=== PATIENT | male | born 1985 | race Caucasian/White ===

== ENCOUNTER 2016-05-31 18:59 | Emergency (ER) | payer OTHER ==
[~2016-05-31] VITALS: Ht 188 cm; Wt 98.2 kg
[2016-05-31] MEDS ORDERED: ALBU8HFA IH (19:12)
[2016-05-31] MEDS ORDERED: PERTUSS(ACELL),DIPH,TET VAC/PF 0.5 ML VIAL IM ONE (20:00)
[2016-05-31 20:22] VITALS: BP 121/81
== END 2016-05-31 20:38 | disposition home or self-care (01) ==
LOC: EMS 19:02
DX: S91.331A Puncture wound without foreign body, right foot, initial encounter (principal); J45.909 Unspecified asthma, uncomplicated; X58.XXXA Exposure to other specified factors, initial encounter; Y93.89 Activity, other specified; Y92.89 Other specified places as the place of occurrence of the external cause; Y99.8 Other external cause status
CPT/HCPCS: 90471; 90715; 99283